=== PATIENT | female | born 1980 | race Caucasian/White ===

== ENCOUNTER 2022-01-06 00:53 | Day surgery (SDC) | payer OTHER, SELFPAY ==
[2021-12-25 14:18] VITALS: BMI 45.9
--- NOTE | 2022-01-05 16:13 | WPDANESEPPF ---
Anes - Initial Pre Proc Eval Procedure: Operation Date: 01/06/22 10:45 Proposed Procedures p Esophagogastroduodenoscopy & Colonoscopy - Paramjit Orlando MD Date/Time: 01/05/22 16:13 Surgeon: Paramjit Orlando MD Pre Op Diagnosis: VIDA Patient Data Age: 41 Gender: F Height: 1.57 m Weight: 114 kg Allergies Allergy/AdvReac Type Severity Reaction Status Date / Time No Known Allergies Allergy Verified 01/06/22 09:33 Home Medications Medication Instructions Recorded Confirmed Type L norgest/E estradiol-E estrad 1 ea PO DAILY 12/25/21 01/06/22 History 0.15 mg-30 mcg (84)/10 mcg(7) tabs,3mos (Simpesse) bupropion HCl 150 mg 24 hr tablet, 150 tablet PO DAILY 12/25/21 01/06/22 History extended release buspirone 10 mg tablet 10 tablet PO BID 12/25/21 01/06/22 History escitalopram oxalate 10 mg tablet 10 tablet PO DAILY 12/25/21 01/06/22 History Patient hx anesthesia problems: none Family hx anesthesia problems: none Results Review: All pre-operative results and documents have been reviewed as part of the pre-operative evaluation. [facility] Past Medical History Medical History (Updated 01/05/22 @ 16:14 by Ty Hargrove MD) Anemia Anxiety Depression Morbid obesity with BMI of 40.0-44.9, adult Social History Social History Smoking status: Never smoker Substance use type: does not use Living arrangements: with family Spiritual care concerns: No Anes - Eval Final PreProcedure Day of Procedure 01/05/22 16:13 Patient weight: morbidly obese Heart: regular rate and rhythm Lungs: clear to auscultation and normal air movement Airway: Mallampati scale class II Neurological: alert and oriented Last oral intake: >/= 8 hours ASA classification: III Emergent: no Anesthetic plan: proceed Anesthesia type and monitoring: general GIVS Results Review: All pre-operative results and documents have been reviewed as part of the pre-operative evaluation. Informed Consent: The patient's anesthetic plan and its attendant risks and benefits were discussed with the patient/family/POA. Questions were solicited and answers provided to the satisfaction of the patient/family/POA.
[2022-01-06 09:34] VITALS: BP 115/77; PULSE 80; RESP 18; TEMP 36.5; O2SAT 99
[2022-01-06] MEDS: LACTATED RINGERS 1,000 ML 150 ML IV CONT (09:37)
--- NOTE | 2022-01-06 10:32 | PM.HPGS ---
History of Present Illness History of Present Illness Consent: Risks, benefits, and alternatives have been discussed and questions answered. Patient agrees to proceed with procedure. Chief complaint: VIDA Narrative: Adela Barnes is a 41 year old female with vida without overt gib or any other gi symptoms but never had scopes. She is not using blood thinners or nsaid's Review of Systems Constitutional: Constitutional: Denies headache(s) and Denies weakness Eyes: Eyes: Denies blurry vision ENT: Reports Normal hearing present, Denies headache(s) and Denies neck pain Cardiovascular: Cardiovascular: Denies chest pain and Denies dyspnea Respiratory: Respiratory: Denies dyspnea Gastrointestinal: Gastrointestinal: Reports no additional gastrointestinal complaints Genitourinary: Genitourinary: Denies dysuria Musculoskeletal: Musculoskeletal: Denies neck pain Integumentary/Breasts: Skin/Breast: Denies dry skin Neurologic: Reports Normal hearing present, Denies headache(s) and Denies weakness Psychiatric: Psychiatric: Denies anxiety Endocrine: Endocrine: Denies change in body appearance Hematologic/Lymphatic: Hematologic/Lymphatic: Denies easy bleeding Allergic/Immunologic: Allergic/Immunologic: Denies urticaria PMFSH Past Medical History Medical History (Updated 01/06/22 @ 10:32 by Paramjit Orlando MD) Anemia Anxiety Depression Iron deficiency anemia Morbid obesity with BMI of 40.0-44.9, adult Social History Social History Smoking status: Never smoker Substance use type: does not use Living arrangements: with family Spiritual care concerns: No Meds Home Medications and Allergies Home Medications Medication Instructions Recorded Confirmed Type L norgest/E estradiol-E estrad 1 ea PO DAILY 12/25/21 01/06/22 History 0.15 mg-30 mcg (84)/10 mcg(7) tabs,3mos (Simpesse) bupropion HCl 150 mg 24 hr tablet, 150 tablet PO DAILY 12/25/21 01/06/22 History extended release buspirone 10 mg tablet 10 tablet PO BID 12/25/21 01/06/22 History escitalopram oxalate 10 mg tablet 10 tablet PO DAILY 12/25/21 01/06/22 History Allergies Allergy/AdvReac Type Severity Reaction Status Date / Time No Known Allergies Allergy Verified 01/06/22 09:33 Vital Signs Vital Signs - 24 hr 01/06/22 09:34 Temperature 97.7 F Pulse Rate 80 Respiratory Rate 18 Blood Pressure 115/77 Pulse Oximetry 99 Oxygen Delivery Room Air Exam Const: General: comfortable and no acute distress HENMT: General nose exam: Normal nares present Eyes: General: appearance normal, both eyes and all related structures Neck: Neck: no JVD Resp: Auscultation: clear to auscultation bilaterally Cardio: Rate: regular rate Rhythm: regular rhythm GI: Inspection: non-distended GI Palp: Yes Soft to palpation Skin: General skin exam: normal color Neuro: General: gait normal Speech: normal speech Extrem: General: normal to inspection Psych: Mental Status: mental status grossly normal Assessment and Plan Assessment and plan (1) Iron deficiency anemia: Code(s): D50.9 - Iron deficiency anemia, unspecified Status: Acute Assessment and Plan: will do egd and colonoscopy to assess if any gi reason to explain anemia
--- NOTE | 2022-01-06 10:51 | SUR.OPER ---
EGD ended at 1048. Colonoscopy started at 1052.
[2022-01-06 11:06] VITALS: BP 88/49; PULSE 65; RESP 17; O2SAT 100
[2022-01-06 11:16] VITALS: BP 96/53; PULSE 63; RESP 20; O2SAT 100
[2022-01-06 11:26] VITALS: BP 109/55; PULSE 54; RESP 18; O2SAT 100
== END 2022-01-06 11:35 | disposition home or self-care (01) ==
PROVIDERS: PCP Emergency Medicine; Visit Provider Internal Medicine Gastroenterology
PROC: 0DJ08ZZ Inspection of Upper Intestinal Tract, Via Natural or Artificial Opening Endoscopic (ICD-10-PCS; CPT 43235; principal; 2022-01-06 10:45)
DX: Z12.11 Encounter for screening for malignant neoplasm of colon (principal); D50.9 Iron deficiency anemia, unspecified; F41.9 Anxiety disorder, unspecified; F32.A Depression, unspecified; E66.01 Morbid (severe) obesity due to excess calories; Z68.42 Body mass index [BMI] 45.0-49.9, adult
CPT/HCPCS: 45378; 43239; 88305; J2704; J7120

== ENCOUNTER 2023-07-20 15:51 | Emergency (ER) | payer OTHER, SELFPAY ==
[2023-07-20 15:56] VITALS: BP 122/71; PULSE 105; RESP 16; TEMP 36.3; O2SAT 98
--- NOTE | 2023-07-20 16:04 | ED.URI ---
HPI - URI/Sore Throat General Chief Complaint: Upper Respiratory Infection Stated Complaint: fever/cough/throat/aches Time Seen by Provider: 07/20/23 16:05 Source: patient Mode of arrival: ambulatory Limitations: no limitations History of Present Illness HPI Narrative: 42-year-old female presents with complaint of sore throat, fatigue, body aches, chills, congestion and cough for 3 days. Afebrile. Reports diaphoretic. No chest pain or shortness of breath. Taking TheraFlu, DayQuil to treat symptoms. Needs COVID test for work. All systems reviewed and negative except as noted above. Related Data Home Medications Medication Instructions Recorded Confirmed L norgest/E estradiol-E estrad 1 ea PO DAILY 12/25/21 07/20/23 0.15 mg-30 mcg (84)/10 mcg(7) tabs,3mos (Simpesse) bupropion HCl 150 mg 24 hr tablet, 150 tablet PO DAILY 12/25/21 07/20/23 extended release buspirone 10 mg tablet 10 tablet PO BID 12/25/21 07/20/23 escitalopram oxalate 10 mg tablet 10 tablet PO DAILY 12/25/21 07/20/23 lisdexamfetamine 70 mg capsule 70 mg PO DAILY 07/20/23 07/20/23 (Vyvanse) quetiapine 25 mg tablet 12.5 mg PO QHS 07/20/23 07/20/23 Allergies Allergy/AdvReac Type Severity Reaction Status Date / Time No Known Allergies Allergy Verified 07/20/23 16:15 Review of Systems Review of Systems: CONSTITUTIONAL: Denies fever. Reports chills, fatigue and sweats. EYES: Denies visual changes, redness, or discharge. ENT: Reports rhinorrhea, congestion, sore throat. Denies otalgia. CARDIOVASCULAR: Denies chest pain, palpitations, or edema. RESPIRATORY: Reports cough. Denies dyspnea. GASTROINTESTINAL: Denies abdominal pain, nausea, vomiting, or diarrhea. GENITOURINARY: Denies dysuria or hematuria. SKIN: Denies rash or itching. MUSCULOSKELETAL: Denies back pain, joint pain, or myalgia. NEUROLOGIC: Denies headache, numbness, or weakness. PSYCHIATRIC: Denies anxiety or depression. All other systems reviewed are negative, except as documented in HPI. [facility] Past Medical History Medical History (Updated 07/20/23 @ 16:24 by Chery Millan NP) Anemia Anxiety Depression Iron deficiency anemia Morbid obesity with BMI of 40.0-44.9, adult Social History Social History (System 01/12/22 @ 09:27 by Suraj Ortiz) Smoking status: Never smoker Substance use type: does not use Living arrangements: with family Spiritual care concerns: No Comments At time of signature, agree with nursing past medical, surgical, social and family history. There is no relevant family history pertinent to the presenting complaint. Exam Narrative: GENERAL: This is a well-nourished, well-developed patient, in no apparent distress. HEAD: normocephalic, atraumatic. EYES: PERRL. Sclera clear/white. Vision is grossly intact. EARS: External ears normal, auditory canals clear and without drainage, TMs normal without perforation. Hearing grossly intact. NOSE: External nose normal with nasal drainage, mild erythema to nares. THROAT: Mucous membranes moist, mild erythema without swelling or exudates. Clear postnasal drainage. NECK: Neck supple, non-tender without lymphadenopathy, masses or thyromegaly. CARDIOVASCULAR: Regular rate and rhythm without murmurs, gallops, or rubs. RESPIRATORY: Clear to auscultation. Breath sounds equal bilaterally. No wheezes, rales, or rhonchi. SKIN: warm, Dry, intact with no suspicious lesions or rash, good texture and turgor. NEURO: awake, alert, and oriented to person, place and time. There were no obvious focal neurologic abnormalities. EXTREMITIES: No joint tenderness, effusion, or edema noted. Course Course Level of Care: Express Care Visit Vital Signs Vital signs: Vital Signs Temperature 36.3 C L 07/20/23 15:56 Pulse Rate 105 H 07/20/23 15:56 Respiratory Rate 16 07/20/23 15:56 Blood Pressure 122/71 07/20/23 15:56 Pulse Oximetry 98 07/20/23 15:56 Oxygen Delivery Room Air 07/20/23 1
== END 2023-07-20 16:25 | disposition home or self-care (01) ==
PROVIDERS: Emergency Provider Nurse Practitioner Family
DX: J06.9 Acute upper respiratory infection, unspecified (principal); R05.9 Cough, unspecified; F41.9 Anxiety disorder, unspecified; F32.A Depression, unspecified; D50.9 Iron deficiency anemia, unspecified; E66.01 Morbid (severe) obesity due to excess calories; Z68.43 Body mass index [BMI] 50.0-59.9, adult
CPT/HCPCS: 87081; 87804; 87880; 99213; G0463